=== PATIENT | male | born 1955 | race Caucasian/White ===

== ENCOUNTER → 2016-06-28 | Outpatient (CLI) | payer OTHER ==
--- NOTE | 2016-06-28 15:03 | DX ---
Right elbow, 3 views. History: Pain after recent fall. Findings: Normal mineralization alignment. No evidence for acute fracture or dislocation. No stomach and joint narrowing or periarticular erosion. There is a benign bone island in the olecranon process. . No evidence for elbow joint effusion. Impression: Unremarkable right elbow.
--- NOTE | 2016-06-28 15:07 | DX ---
Right Hip, Two Views. History: Hip pain after recent fall. Findings: Severe degenerative change is seen in the right hip with joint loss and [id number] articu lation superiorly. There is subcortical sclerosis and cystic change more predominant in the superior femoral head. Milder degenerative change is seen in the left hip. Osseous fullness is seen superiorly in the femoral head neck junction bilaterally indicating underlying femoral acetabular impingement, cam type. Mild degenerative change is seen in the symphysis pubis and lower lumbar spine. Impression: Severe degenerative change in the right hip and moderate degenerative change left hip. 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 Subcortical sclerosis and cystic ramos e in the superior right femoral head versus less likely a component of avascular necrosis.
== END ==
LOC: BRMIMAGING 14:31
DX: M16.0 Bilateral primary osteoarthritis of hip (principal); M25.521 Pain in right elbow
CPT/HCPCS: 73080-PO; 73502-PO